=== PATIENT | female | born 1995 | race Caucasian/White ===

== ENCOUNTER 2016-08-23 02:45 | Inpatient (IN) | payer OTHER ==
[2016-08-23 03:39] VITALS: BMI 21.6
--- NOTE | 2016-08-23 04:40 | PDOC ---
History of Present Illness - General History Source: Patient Exam Limitations: No Limitations - History of Present Illness Initial Comments: 08/23/16 05:07 The patient is a 21 year old female with no significant past medical history who presents to the ED with 4 days of abdominal pain. Patient describes pain as dull and achy in quality and 7/10 that is worse with deep inspiration and bending over. States her pain starts in the mid epigastric area and subsequently radiated into the right upper quadrant and left upper quadrant. Denies any changes in her diet, nausea, vomiting, or diarrhea. Patient states she feels full quickly and increased belching. She endorses dizziness. Patient tried using tums and prune juice with no relief as well as tylenol with no relief. States for 3 days a week she partakes in dance competition. Her LMP was 1 week ago. The patient denies fever, chills, cough, SOB, chest pain, and palpitations. Allergies: NKDA Social History: No alcohol, tobacco, or drug use reported. Past Surgical History: None reported PCP: Dr. Rebecca Vila <Jess Beauchamp - Last Filed: 08/23/16 05:27> - General History Source: Patient <SchuylerFrankie teixeira - Last Filed: 08/23/16 19:46> - General Chief Complaint: Pain Stated Complaint: STOMACH PAIN Time Seen by Provider: 08/23/16 04:40 Past History <Jess Beauchamp - Last Filed: 08/23/16 05:27> - Psycho/Social/Smoking Cessation Hx Suicidal Ideation: No Smoking History: Never smoked Have you smoked in the past 12 months: No Information on smoking cessation initiated: No Hx Alcohol Use: No Drug/Substance Use Hx: No <Frankie Daniels - Last Filed: 08/23/16 19:46> - Past Medical History Allergies/Adverse Reactions: Allergies Allergy/AdvReac Type Severity Reaction Status Date / Time No Known Allergies Allergy Verified 08/23/16 03:36 Home Medications: Ambulatory Orders NK [No Known Home Medication] 08/23/16 Review of Systems - Review of Systems Able to Perform ROS?: Yes Comments:: 08/23/16 05:07 CONSTITUTIONAL: Absent: fever, no chills, no fatigue EYES: Absent: visual changes ENT: Absent: ear pain, no sore throat CARDIOVASCULAR: Absent: chest pain, no palpitations RESPIRATORY: Absent: cough, no SOB GI: +midepigastric pain, RUQ pain, LUQ pain, belching Absent: no nausea, no vomiting , no constipation, no diarrhea GENITOURINARY: Absent: dysuria, no frequency, no hematuria MUSCULOSKELETAL: Absent: back pain, no arthralgia, no myalgia SKIN: Absent: rash NEURO: +dizziness Absent: headache <NitoJess - Last Filed: 08/23/16 05:27> *Physical Exam - Vital Signs Last Vital Signs Temp Pulse Resp BP Pulse Ox 97.5 F L 74 14 119/78 100 08/23/16 03:36 08/23/16 03:36 08/23/16 03:36 08/23/16 03:36 08/23/16 03:36 - Physical Exam Comments: 08/23/16 05:07 GENERAL: Well-appearing, well-nourished. No apparent distress. HEENT: Normocephalic, atraumatic. PERRL, EOM intact. CARDIOVASCULAR: Normal S1, S2. Regular rate and rhythm. PULMONARY: Clear to auscultation bilaterally. ABDOMEN: Soft, non-distended, non-tender. EXTREMITIES: Normal ROM in all four extremities. No gross deformities. SKIN: Warm, dry. No rash NEUROLOGICAL: No focal neurological deficits. <NitoJess - Last Filed: 08/23/16 05:27> - Vital Signs Last Vital Signs Temp Pulse Resp BP Pulse Ox 97.5 F L 74 14 119/78 100 08/23/16 03:36 08/23/16 03:36 08/23/16 03:36 08/23/16 03:36 08/23/16 03:36 <Frankie Daniels - Last Filed: 08/23/16 19:46> ED Treatment Course - LABORATORY CBC & Chemistry Diagram: 08/23/16 04:57 08/23/16 04:57 - Medications Given in the ED: ED Medications Discontinued Medications Generic Name Dose Route Start Last Admin Trade Name Freq PRN Reason Stop Dose Admin Pantoprazole Sodium 40 mg 08/23/16 04:45 08/23/16 04:56 Protonix - PO 08/23/16 04:46 40 mg ONCE ONE Administration <Jess Beauchamp - Last Filed: 08/23/16 05:27> - LABORATORY CBC & Chemistry Diagram: 08/23/16 04:57 08/23/16 04:57 <Frankie Daniels - Last Filed: 08/23/16 19:46> Medical Decision Making - Medical Decision Making 08/23/16 19:46 Dr. Daniels: The scribe's documentation has been prepared under my direction and personally reviewed by me in its entirery. I confirm that the note above accurately reflects all work, treatment, procedures, and medical decision making performed by me. <Frankie Daniels - Last Filed: 08/23/16 19:46> *DC/Admit/Observation/Transfer - Attestations Scribe Attestion: 08/23/16 05:08 Documentation prepared by Jess Beauchamp, acting as medical record transcriber for Frankie Daniels MD/. <Jess Beauchamp - Last Filed: 08/23/16 05:27> <Frankie Daniels - Last Filed: 08/23/16 19:46> Diagnosis at time of Disposition: Acute pancreatitis Qualifiers: Pancreatitis type: unspecified pancreatitis type Acute pancreatitis complication: unspecified Qualified Code(s): K85.90 - Acute pancreatitis without necrosis or infection, unspecified - Discharge Dispostion Condition at time of disposition: Stable - Referrals
[2016-08-23] MEDS ORDERED: PANTOPRAZOLE 40 MG TABLET (FP) PO ONE (04:45)
[2016-08-23] MEDS ORDERED: PANTOPRAZOLE 40 MG TABLET (FP) ONE (04:47)
[2016-08-23 05:14] LABS: BASOPHIL 0.4 % (0-2.0); EOSINOPHIL 0.4 % (0-4.5); MCH 25.3 pg (25.7-33.7); MCHC 31.5 g/dl (32.0-36.0); MEAN CELL VOLUME 80.1 fl (80-96); MEAN PLT VOLUME 8.9 fl (7.5-11.1); NEUTROPHILS 52.4 % (42.8-82.8); PLATELET COUNT 154 K/MM3 (134-434); WHITE BLOOD COUNT 7.2 K/mm3 (4.0-10.0)
[2016-08-23 05:26] LABS: INR 1.05 (0.82-1.09); PROTHROMBIN TIME (PATIENT) 11.6 SEC (9.98-11.88)
[2016-08-23 05:39] LABS: ALBUMIN 3.8 g/dl (3.4-5.0); ALK PHOS 51 U/L (45-117); AMYLASE 87 U/L (25-115); ANION GAP 9 (8-16); BILIRUBIN,TOTAL 0.2 mg/dL (0.2-1.0); CALCIUM 8.7 mg/dL (8.5-10.1); CO2 26 mmol/L (21-32); COCKROFT - GAULT 114.5885; CREATININE 0.6 mg/dL (0.55-1.02); GLUCOSE,RANDOM 84 mg/dL (74-106); SGOT/AST 19 U/L (15-37); SGPT/ALT 23 U/L (12-78)
[2016-08-23 05:39] LABS: URINE APPEARANCE CLEAR; URINE BILIRUBIN NEGATIVE (NEGATIVE); URINE COLOR LTYELLOW; URINE GLUCOSE (UA) NEGATIVE (NEGATIVE); URINE KETONE NEGATIVE (NEGATIVE); URINE LEUK ESTERASE NEGATIVE (NEGATIVE); URINE NITRITE NEGATIVE (NEGATIVE); URINE PROTEIN NEGATIVE (NEGATIVE); URINE UROBILINOGEN NEGATIVE E.U./dl (0.2-1.0)
[2016-08-23 05:43] LABS: URINE BLOOD 2+ (NEGATIVE)
[2016-08-23 05:44] LABS: URINE MUCUS RARE; URINE RBC 112 /hpf (0-3); URINE WBC 2 /hpf (3-5)
[2016-08-23] MEDS ORDERED: SODIUM CHLORIDE 1,000 ML IV SCH ×2 (06:15→07:15)
--- NOTE | 2016-08-23 06:44 | PDOC ---
*Physical Exam - Vital Signs Last Vital Signs Temp Pulse Resp BP Pulse Ox 97.5 F L 74 14 119/78 100 08/23/16 03:36 08/23/16 03:36 08/23/16 03:36 08/23/16 03:36 08/23/16 03:36 - Physical Exam Comments: 08/23/16 06:44 Sign-out received from outgoing Emergency Physician Pt interviewed and examined Ancillary studies reviewed Elevated lipase noted CT pending 08/23/16 07:02 Will admit for further evaluation and treatment of pancreatitis Clinical impression: Pancreatitis Case discussed in detail with admitting provider including history, physical exam and ancillary studies. Admitting physician has assumed care for the patient, will follow all pending diagnostics and will complete the evaluation and treatment. 08/23/16 07:26 EKG noted: Normal sinus rhythm at 68, normal axis, normal intervals, inverted T- wave in lead 3, no ST changes 08/23/16 07:48 TFTs were ordered in error and immediately cancelled after the order was placed They are being run in error ED Treatment Course - LABORATORY CBC & Chemistry Diagram: 08/23/16 04:57 08/23/16 04:57 - ADDITIONAL ORDERS Additional order review: Laboratory Results 08/23/16 08/23/16 08/23/16 05:42 04:57 04:57 INR 1.05 Sodium Potassium Chloride Carbon Dioxide Anion Gap BUN Creatinine Creat Clearance w eGFR Random Glucose Calcium Magnesium 2.0 Total Bilirubin AST ALT Alkaline Phosphatase Total Protein Albumin Total Amylase Lipase 897 H Serum , Qual Negative Urine Color Ltyellow Urine Appearance Clear Urine pH 6.0 Urine Protein Negative Urine Glucose (UA) Negative Urine Ketones Negative Urine Blood 2+ H Urine Nitrite Negative Urine Bilirubin Negative Urine Urobilinogen Negative Ur Leukocyte Esterase Negative Urine RBC 112 Urine WBC 2 Ur Epithelial Cells Rare Urine Mucus Rare 08/23/16 04:57 INR Sodium 141 Potassium 4.0 Chloride 106 Carbon Dioxide 26 Anion Gap 9 BUN 19 H Creatinine 0.6 Creat Clearance w eGFR > 60 Random Glucose 84 Calcium 8.7 Magnesium Total Bilirubin 0.2 AST 19 ALT 23 Alkaline Phosphatase 51 Total Protein 7.0 Albumin 3.8 Total Amylase 87 Lipase Serum , Qual Urine Color Urine Appearance Urine pH Urine Protein Urine Glucose (UA) Urine Ketones Urine Blood Urine Nitrite Urine Bilirubin Urine Urobilinogen Ur Leukocyte Esterase Urine RBC Urine WBC Ur Epithelial Cells Urine Mucus 08/23/16 04:57 RBC 4.43 MCV 80.1 MCHC 31.5 L RDW 16.0 H MPV 8.9 Neutrophils % 52.4 Lymphocytes % 38.8 Monocytes % 8.0 Eosinophils % 0.4 Basophils % 0.4 - Medications Given in the ED: ED Medications Discontinued Medications Generic Name Dose Route Start Last Admin Trade Name Freq PRN Reason Stop Dose Admin Pantoprazole Sodium 40 mg 08/23/16 04:45 08/23/16 04:56 Protonix - PO 08/23/16 04:46 40 mg ONCE ONE Administration *DC/Admit/Observation/Transfer Diagnosis at time of Disposition: Acute pancreatitis Qualifiers: Pancreatitis type: unspecified pancreatitis type Acute pancreatitis complication: unspecified Qualified Code(s): K85.90 - Acute pancreatitis without necrosis or infection, unspecified - Discharge Dispostion Admit: Yes - Referrals Referrals: Rebecca Gambino MD [Primary Care Provider] - - Patient Instructions - Post Discharge Activity
[2016-08-23 08:11] LABS: FREE T4 1.2 ng/dl (0.76-1.46); THYROID STIMULATING HORMONE 2.01 uIU/ml (0.358-3.74)
[2016-08-23] MEDS ORDERED: ONDANSETRON 4 MG/2 ML VIAL IVPB PRN (08:13)
[2016-08-23] MEDS ORDERED: morphine CARPU-JECT 2 MG/1 ML DISP.SYRIN IVPUSH PRN (08:13)
--- NOTE | 2016-08-23 08:30 | HP ---
Addendum entered and electronically signed by Reynaldo Brown RES 08/23/16 18: 23: A/P: Evaluation for source of pancreatitis: * Abd. CT -showed fat stranding consistent with acute pancreatitis. * Gallbladder US- shows no evidence of stones * Lipid panel shows TG of 101 * will not trend lipase. Original Note: CHIEF COMPLAINT:abdominal pain PCP: HISTORY OF PRESENT ILLNESS: 21 yo F with no significant PMHx presents with four day history of abdominal pain. She describes constant achy 8/10 epigastric pain that radiates to bilateral upper quadrants. Pain is worse with eating and bending. NO alleviating factors. She tried tums, prune juice, and tylenol with no relief. Accompanied by early satiety, dizziness and increased belching. She denies fever , chills, nausea or vomiting. Never had similar issues in past. She does not drink alcohol, no history of gall stones, on no medications, and no perscription drugs. Denies CP,ARMSTRONG,SOB, palpitations, diarrhea or constipation. ER course was notable for: (1) Lipase 847 (2) Ct abdomen (3) EKG- NSR, no st changes , flipped T wave in lead III Recent Travel: denies PAST MEDICAL HISTORY: none PAST SURGICAL HISTORY: none Social History: Smoking: never Alcohol:never Drugs: denies Family History: Mother ( of Lymphoma) Allergies No Known Allergies Allergy (Verified 08/23/16 03:36) HOME MEDICATIONS: Home Medications Medication Instructions Recorded NK [No Known Home Medication] 08/23/16 REVIEW OF SYSTEMS CONSTITUTIONAL: (+)loss of appetite Absent: fever, chills, diaphoresis, generalized weakness, malaise, , weight change HEENT: Absent: rhinorrhea, nasal congestion, throat pain, throat swelling, difficulty swallowing, mouth swelling, ear pain, eye pain, visual changes CARDIOVASCULAR: Absent: chest pain, syncope, palpitations, irregular heart rate, lightheadedness , peripheral edema RESPIRATORY: Absent: cough, shortness of breath, dyspnea with exertion, orthopnea, wheezing, stridor, hemoptysis GASTROINTESTINAL:(+) mid epigastic abdominal pain Absent: , abdominal distension, nausea, vomiting, diarrhea, constipation, melena , hematochezia GENITOURINARY: Absent: dysuria, frequency, urgency, hesitancy, hematuria, flank pain, genital pain MUSCULOSKELETAL: Absent: myalgia, arthralgia, joint swelling, back pain, neck pain SKIN: Absent: rash, itching, pallor HEMATOLOGIC/IMMUNOLOGIC: Absent: easy bleeding, easy bruising, lymphadenopathy, frequent infections ENDOCRINE: Absent: unexplained weight gain, unexplained weight loss, heat intolerance, cold intolerance NEUROLOGIC: Absent: headache, focal weakness or paresthesias, dizziness, unsteady gait, seizure, mental status changes, bladder or bowel incontinence PSYCHIATRIC: Absent: anxiety, depression, suicidal or homicidal ideation, hallucinations. PHYSICAL EXAMINATION Vital Signs - 24 hr 08/23/16 03:36 Temperature 97.5 F L Pulse Rate 74 Respiratory 14 Rate Blood Pressure 119/78 O2 Sat by Pulse 100 Oximetry (%) GENERAL: AAOx3 , NAD HEAD: NC/AT. EYES: PERRLA, EOMI, sclera anicteric, conjunctiva clear. No lid lag. EARS, NOSE, THROAT: dry mucous membranes. NECK: supple , No JVD or LAD. LUNGS: CTAB No wheezes, and no crackles. No accessory muscle use. HEART: RRR, normal S1 and S2 without murmur, rub or gallop. ABDOMEN: Soft, mod epigastric tenderness, ND, BS(+), (+) voluntary guarding, no rebound, no masses. No hepatomegaly or splenomegaly. MUSCULOSKELETAL: Normal range of motion at all joints. No bony deformities or tenderness. No CVA tenderness. UPPER EXTREMITIES: 2+ pulses, warm, well-perfused. No cyanosis. No clubbing. No peripheral edema. LOWER EXTREMITIES: 2+ pulses, warm, well-perfused. No calf tenderness. No peripheral edema. NEUROLOGICAL: Cranial nerves II-XII intact. Normal speech. gait not observed. PSYCHIATRIC: Cooperative. Good eye contact. Appropriate mood and affect. SKIN: Warm, dry, normal turgor, no rashes or lesions noted, normal capillary refill. Laboratory Results - last 24 hr 08/23/16 08/23/16 08/23/16 04:57 04:57 04:57 WBC 7.2 RBC 4.43 Hgb 11.2 Hct 35.5 MCV 80.1 MCHC 31.5 L RDW 16.0 H Plt Count 154 MPV 8.9 Neutrophils % 52.4 Lymphocytes % 38.8 Monocytes % 8.0 Eosinophils % 0.4 Basophils % 0.4 INR 1.05 Sodium 141 Potassium 4.0 Chloride 106 Carbon Dioxide 26 Anion Gap 9 BUN 19 H Creatinine 0.6 Creat Clearance w eGFR > 60 Random Glucose 84 Calcium 8.7 Magnesium Total Bilirubin 0.2 AST 19 ALT 23 Alkaline Phosphatase 51 Total Protein 7.0 Albumin 3.8 Total Amylase 87 Lipase Serum , Qual Urine Color Urine Appearance Urine pH Urine Protein Urine Glucose (UA) Urine Ketones Urine Blood Urine Nitrite Urine Bilirubin Urine Urobilinogen Ur Leukocyte Esterase Urine RBC Urine WBC Ur Epithelial Cells Urine Mucus 08/23/16 08/23/16 04:57 05:42 WBC RBC Hgb Hct MCV MCHC RDW Plt Count MPV Neutrophils % Lymphocytes % Monocytes % Eosinophils % Basophils % INR Sodium Potassium Chloride Carbon Dioxide Anion Gap BUN Creatinine Creat Clearance w eGFR Random Glucose Calcium Magnesium 2.0 Total Bilirubin AST ALT Alkaline Phosphatase Total Protein Albumin Total Amylase Lipase 897 H Serum , Qual Negative Urine Color Ltyellow Urine Appearance Clear Urine pH 6.0 Urine Protein Negative Urine Glucose (UA) Negative Urine Ketones Negative Urine Blood 2+ H Urine Nitrite Negative Urine Bilirubin Negative Urine Urobilinogen Negative Ur Leukocyte Esterase Negative Urine RBC 112 Urine WBC 2 Ur Epithelial Cells Rare Urine Mucus Rare ASSESSMENT/PLAN: 21 yo F with no significant PMhx admitted for acute pancreatitis. Problem List - Problem (1) Acute pancreatitis Assessment/Plan: * CT abdomen pending * IVF with NS @ 125ml/hr * Morphine 2mg IV Q4H PRN * NPO (2) Volume depletion Assessment/Plan: * BUN 19 Cr. 0.6 ; BUN/Cr >20 - most likely do to decrease po intake. * IVF with NS @125ml/hr * repeat CMP in AM (3) DVT prophylaxis Assessment/Plan: * SCD's bilat. Visit type - Emergency Visit Emergency Visit: Yes ED Registration Date: 08/23/16 Care time: The patient presented to the Emergency Department on the above date and was hospitalized for further evaluation of their emergent condition. - New Patient This patient is new to me today: Yes Date on this admission: 08/23/16 - Critical Care Critical Care patient: No
--- NOTE | 2016-08-23 08:57 | PN ---
Teaching Attending Note Name of Resident: Reynaldo Brown ATTENDING PHYSICIAN STATEMENT I saw and evaluated the patient. I reviewed the resident's note and discussed the case with the resident. I agree with the resident's findings and plan as documented. SUBJECTIVE: CC: abd pain. HPI: 21 y/o lady with no SIg PMH who presented with abd pain. pain started in epigastric area 4 days ago. it increased in intensity gradually. she denied N/V , fever , chills, dysuria , diarrhea or constipation . she denied abd pain after fatty food. no one in family with h/o pancreatitis or gall stones . denies any ALcohol use , drug use, or smoking. OBJECTIVE: NAD , AAOx3. HEENT: MMM, no facial droop, EOMI, round equal reactive pupils , no LAP in neck CV: RRR, no MRG Lungs: CTAB ext : no edema Abd : soft, ND , TTP in epigastric area, and all quadrants . nl BS . minimal rebound tenderness in both upper quadrants, no guarding ASSESSMENT AND PLAN: 21 y/o lady with no Significant PMH who presented with abd pain and was found to have acute pancreatitis . 1- Acute pancreatitis : unclear etiology. calcium level is NL, has no LFTS abn to suggest an obstructing gall stone. no ALcohol abuse and no family hx of pancreatitis or gall stones. - CT scan of Abd pending. - will order US to r/o gall stones. if present , need surgery eval - IVF - morphine for pain - NPO , will feed tomorrow - serial abd exam. - she has signs of volume depletion given elevated BUN. cont hydration - no need to trend lipase if clinically improving
[2016-08-23] MEDS ORDERED: morphine CARPU-JECT 2 MG/1 ML DISP.SYRIN ONE (09:25)
[2016-08-23] MEDS ORDERED: ENOXAPARIN NA (PORCINE) 40 MG/0.4 ML DISP.SYRIN SQ SCH (10:00)
[2016-08-23] MEDS ORDERED: ENOXAPARIN NA (PORCINE) 40 MG/0.4 ML DISP.SYRIN SQ ONE (10:51)
--- NOTE | 2016-08-23 11:32 | EKG ---
Test Reason : Blood Pressure : / mmHG Vent. Rate : 068 BPM Atrial Rate : 068 BPM P-R Int : 144 ms QRS Dur : 072 ms QT Int : 388 ms P-R-T Axes : -04 047 006 degrees QTc Int : 412 ms NORMAL SINUS RHYTHM WITH SINUS ARRHYTHMIA NORMAL ECG NO PREVIOUS ECGS AVAILABLE Confirmed by JOSE RODRIGUEZ MD ([id number]) on 08/23/2016 11:32:06 AM Referred By: Confirmed By:JOSE RODRIGUEZ MD
[2016-08-23] MEDS: SODIUM CHLORIDE 1,000 ML IV SCH (18:52)
[2016-08-24] MEDS: SODIUM CHLORIDE 1,000 ML IV SCH ×2 (06:05→10:02)
[2016-08-24 08:24] LABS: BASOPHIL 0.4 % (0-2.0); EOSINOPHIL 0.1 % (0-4.5); MCH 25.7 pg (25.7-33.7); MCHC 31.9 g/dl (32.0-36.0); MEAN CELL VOLUME 80.6 fl (80-96); MEAN PLT VOLUME 9.2 fl (7.5-11.1); NEUTROPHILS 74.6 % (42.8-82.8); PLATELET COUNT 139 K/MM3 (134-434); RDW 15.3 % (11.6-15.6); WHITE BLOOD COUNT 5.7 K/mm3 (4.0-10.0)
[2016-08-24 09:01] LABS: ALBUMIN 3.6 g/dl (3.4-5.0); ANION GAP 16 (8-16); CALCIUM 8.4 mg/dL (8.5-10.1); CO2 20 mmol/L (21-32); MAGNESIUM 1.8 mg/dL (1.8-2.4)
[2016-08-24 09:06] LABS: ALK PHOS 59 U/L (45-117); BILIRUBIN,TOTAL 0.8 mg/dL (0.2-1.0); CREATININE 0.5 mg/dL (0.55-1.02); GLUCOSE,RANDOM 50 mg/dL (74-106); SGOT/AST 21 U/L (15-37); SGPT/ALT 19 U/L (12-78); TOT PROT 6.4 g/dl (6.4-8.2)
[2016-08-24] MEDS ORDERED: SODIUM CHLORIDE 1,000 ML IV SCH (12:37)
--- NOTE | 2016-08-24 18:34 | PN ---
Physical Exam: SUBJECTIVE: Patient seen and examined OBJECTIVE: Vital Signs Period Temp Pulse Resp BP Sys/Martinez Pulse Ox Last 24 Hr 98.1 F-98.4 F 72-89 18-18 95-122/54-65 98-100 GENERAL: The patient is awake, alert, and fully oriented, in no acute distress. HEAD: Normal with no signs of trauma. EYES: PERRL, extraocular movements intact, sclera anicteric, conjunctiva clear. No ptosis. ENT: Ears normal, nares patent, oropharynx clear without exudates, moist mucous membranes. NECK: Trachea midline, full range of motion, supple. LUNGS: Breath sounds equal, clear to auscultation bilaterally, no wheezes, no crackles, no accessory muscle use. HEART: Regular rate and rhythm, S1, S2 without murmur, rub or gallop. ABDOMEN: Soft, nontender, nondistended, normoactive bowel sounds, no guarding, no rebound, no hepatosplenomegaly, no masses. EXTREMITIES: 2+ pulses, warm, well-perfused, no edema. NEUROLOGICAL: Cranial nerves II through XII grossly intact. Normal speech, gait not observed. PSYCH: Normal mood, normal affect. SKIN: Warm, dry, normal turgor, no rashes or lesions noted Laboratory Results - last 24 hr 08/24/16 08/24/16 07:40 07:40 WBC 5.7 RBC 4.63 Hgb 11.9 Hct 37.3 MCV 80.6 MCHC 31.9 L RDW 15.3 Plt Count 139 MPV 9.2 Neutrophils % 74.6 D Lymphocytes % 20.1 D Monocytes % 4.8 Eosinophils % 0.1 Basophils % 0.4 Sodium 141 Potassium 3.6 Chloride 105 Carbon Dioxide 20 L D Anion Gap 16 BUN 15 D Creatinine 0.5 L Creat Clearance w eGFR > 60 Random Glucose 50 L D Calcium 8.4 L Phosphorus 3.0 Magnesium 1.8 Total Bilirubin 0.8 D AST 21 ALT 19 Alkaline Phosphatase 59 Total Protein 6.4 Albumin 3.6 Active Medications Generic Name Dose Route Start Last Admin Trade Name Freq PRN Reason Stop Dose Admin Sodium Chloride 1,000 mls @ 75 mls/hr 08/24/16 12:37 08/24/16 15:57 Normal Saline - IV 75 mls/hr ASDIR REJI Administration Ondansetron HCl 4 mg 08/23/16 08:13 Zofran Injection IVPB Q6H PRN NAUSEA ASSESSMENT/PLAN: Problem List - Problems (1) Acute pancreatitis Assessment/Plan: * Tolerating regular diet; plan for discharge in AM * CT abdomen shows fat stranding * TG-101 * Gallbladder US negative * IVF with NS @ 125ml/hr * Morphine 2mg IV Q4H PRN (2) Volume depletion Assessment/Plan: * BUN 19 Cr. 0.6 ; BUN/Cr >20 - most likely do to decrease po intake. * IVF with NS @125ml/hr * repeat CMP in AM (3) DVT prophylaxis Assessment/Plan: * SCD's bilat. Visit type - Emergency Visit Emergency Visit: Yes ED Registration Date: 08/23/16 Care time: The patient presented to the Emergency Department on the above date and was hospitalized for further evaluation of their emergent condition. - New Patient This patient is new to me today: No - Critical Care Critical Care patient: No - Discharge Referral Referred to [facility] Med P.C[facility] No
--- NOTE | 2016-08-24 18:38 | PN ---
Teaching Attending Note Name of Resident: Reynaldo Brown ATTENDING PHYSICIAN STATEMENT I saw and evaluated the patient. I reviewed the resident's note and discussed the case with the resident. I agree with the resident's findings and plan as documented. SUBJECTIVE: no fever or chills. feels better , tolerated diet OBJECTIVE: NAD , AAOx3. CV: RRR, no MRG Lungs: CTAB ext : no edema Abd : soft, ND , minimal TTP in epigastric area, no rebound tenderness or guarding ASSESSMENT AND PLAN: 21 y/o lady with no Significant PMH who presented with abd pain and was found to have acute pancreatitis . 1- Acute pancreatitis : unclear etiology. calcium level is NL, has no LFTS abn to suggest an obstructing gall stone. no ALcohol abuse and no family hx of pancreatitis or gall stones. no US evidence of gall stones . TG not elevated - tolerated advanced diet dc home f/u with GI as out pt f/u with PCP
--- NOTE | 2016-08-24 18:55 | DS ---
Physical Exam: SUBJECTIVE: Patient seen and examined at bedside. No overnight events. No new complaints. Abd. pain has resolved. torerating regular diet. Denies CP,ARMSTRONG, SOB, Abd. pain, N/V. OBJECTIVE: Vital Signs Period Temp Pulse Resp BP Sys/Martinez Pulse Ox Last 24 Hr 98.1 F-98.4 F 72-89 18-18 95-122/54-65 98-100 PHYSICAL EXAM NAD , AAOx3. CV: RRR, no MRG Lungs: CTAB ext : no edema Abd : soft, ND , minimal TTP in epigastric area, no rebound tenderness or guarding LABS Laboratory Results - last 24 hr 08/24/16 08/24/16 07:40 07:40 WBC 5.7 RBC 4.63 Hgb 11.9 Hct 37.3 MCV 80.6 MCHC 31.9 L RDW 15.3 Plt Count 139 MPV 9.2 Neutrophils % 74.6 D Lymphocytes % 20.1 D Monocytes % 4.8 Eosinophils % 0.1 Basophils % 0.4 Sodium 141 Potassium 3.6 Chloride 105 Carbon Dioxide 20 L D Anion Gap 16 BUN 15 D Creatinine 0.5 L Creat Clearance w eGFR > 60 Random Glucose 50 L D Calcium 8.4 L Phosphorus 3.0 Magnesium 1.8 Total Bilirubin 0.8 D AST 21 ALT 19 Alkaline Phosphatase 59 Total Protein 6.4 Albumin 3.6 IMAGING: * EXAM#: TYPE/EXAM: RESULT: [id number] US/ABDOMEN US -LIMITED Rule out stones Right upper abdomen ultrasound. The liver is within normal limits in size and echotexture. Gallbladder is adequately distended without intraluminal stones or thickening of its wall. No intra or extrahepatic bile duct dilatation is seen. The right kidney measures 10.5 cm sagittal length and appears unremarkable. Visualized portion of the pancreas appears unremarkable Visualized portion of the proximal abdominal aorta and inferior vena cava appear unremarkable. IMPRESSION: Unremarkable examination . Reported By: Harjit Escoto MD 08/23/16 1019 HOSPITAL COURSE: 21 y/o lady with no Significant PMH who presented with abd pain and was found to have acute pancreatitis . Ct confirmed acute pancreatitis. Lipase was elevated. Patient was placed NPO, given NS IVF, and pain control with morphine PRN.Unclear etiology for pancreatitis. Lipid panel showed TG 101, no history of ETOH or history of pancreatitis, gallbladder US was negative for stones. Will make referral to see GI as outpatient for further follow up. Patient abdominal pain improved significantly and was stable for discharge. Date of Admission:08/23/16 Date of Discharge: 08/24/16 Minutes to complete discharge: 33 Discharge Summary Reason For Visit: ACUTE PANCREATITIS Current Active Problems Acute pancreatitis (Acute) DVT prophylaxis (Acute) Volume depletion (Acute) Condition: Stable - Instructions Diet, Activity, Other Instructions: Please follow with Dr. Ward from GI , to evaluate further why you had pancreatitis. Try to avoid fatty foods for next few days then you can resume regular diet. Increase activity as tolerated. Referrals: Vipin Ward MD [Staff Physician] - Rebecca Gambino MD [Primary Care Provider] - Disposition: HOME - Home Medications Comprehensive Discharge Medication List: Ambulatory Orders NK [No Known Home Medication] 08/23/16 Problem List - Problems (1) Acute pancreatitis (2) Volume depletion (3) DVT prophylaxis This patient is new to me today: No Emergency Visit: Yes ED Registration Date: 08/23/16 Care time: The patient presented to the Emergency Department on the above date and was hospitalized for further evaluation of their emergent condition. Critical Care patient: No - Discharge Referral Referred to [id number] Med [facility].C[facility] No
[2016-08-24 19:52] VITALS: BP 114/71; PULSE 75; TEMP 98.8
== END 2016-08-24 19:44 | disposition home or self-care (01) | DRG 282 ==
LOC: JER 02:45 → JERBED 13:35 → J6S 15:35
PROVIDERS: ADMIT Internal Medicine; ATTEND Internal Medicine
DX: K85.90 Acute pancreatitis without necrosis or infection, unspecified (principal); E86.9 Volume depletion, unspecified
CPT/HCPCS: 36415; 74177-TC; 76705-TC; 80053; 80061; 81003; 81015; 82150; 83690; 83721; 83735; 84100; 84439; 84443; 84703; 85025; 85610; 93005; 93010; 99285-25; Q9967

== ENCOUNTER 2016-09-01 15:20 | Emergency (ER) | payer OTHER ==
[2016-09-01 15:24] VITALS: BP 119/71; PULSE 90; TEMP 98; BMI 21.6
[2016-09-01] MEDS ORDERED: IBUPROFEN 100 MG/5 ML UNIT DOSE CUPS PO ONE (15:49)
[2016-09-01] MEDS ORDERED: IBUPROFEN 100 MG/5 ML UNIT DOSE CUPS ONE (15:51)
--- NOTE | 2016-09-01 15:56 | PDOC ---
History of Present Illness - General Chief Complaint: Injury Stated Complaint: LACERATION Time Seen by Provider: 09/01/16 15:30 History Source: Patient - History of Present Illness Occurred: reports: just prior to arrival Upper Extremity Pain Location: left: thumb Method of Injury: reports: direct blow Past History - Past Medical History Allergies/Adverse Reactions: Allergies Allergy/AdvReac Type Severity Reaction Status Date / Time No Known Allergies Allergy Verified 09/01/16 15:24 Home Medications: Ambulatory Orders NK [No Known Home Medication] 08/23/16 Anemia: No Asthma: No Cancer: No Cardiac Disorders: No CVA: No COPD: No CHF: No Dementia: No Diabetes: No GI Disorders: No Disorders: No HTN: No Hypercholesterolemia: No Liver Disease: No Seizures: No Thyroid Disease: No - Surgical History Abdominal Surgery: No Appendectomy: No Cardiac Surgery: No Cholecystectomy: No Lung Surgery: No Neurologic Surgery: No Orthopedic Surgery: No - Psycho/Social/Smoking Cessation Hx Suicidal Ideation: No Smoking History: Never smoked Have you smoked in the past 12 months: No Information on smoking cessation initiated: No Hx Alcohol Use: No Drug/Substance Use Hx: No Review of Systems - Review of Systems Musculoskeletal: Yes: Joint Pain *Physical Exam - Vital Signs Last Vital Signs Temp Pulse Resp BP Pulse Ox 98 F 90 18 119/71 100 09/01/16 15:22 09/01/16 15:22 09/01/16 15:22 09/01/16 15:22 09/01/16 15:22 - Physical Exam General Appearance: Yes: Appropriately Dressed. No: Apparent Distress HEENT: positive: Normal Voice Neck: positive: Supple Respiratory/Chest: negative: Respiratory Distress Extremity: positive: Other (+subungal hematoma to L thumb, no sig swelling and no deformity) Integumentary: positive: Dry, Warm Neurologic: positive: Fully Oriented, Alert, Normal Mood/Affect Procedures - Nail Trephination Method of Drainage: nail cauterized Sterile Dressing Applied: Yes Finger Splint: Yes ED Treatment Course - RADIOLOGY Radiology Studies Ordered: Category Date Time Status FINGER(S) LEFT [RAD] Stat Radiology 09/01/16 15:49 Ordered Medical Decision Making - Medical Decision Making 09/01/16 15:51 21 yo F, no sig hx, here w/ finger injury after she accidentally slammed finger in car door See exam Finger injury w/ subungal hematoma R/o fx -XR -pain control -tetanus UTD -nail trephination 09/01/16 16:30 XR neg for fx. Dressing and splint placed. Pt discharged in stable condition *DC/Admit/Observation/Transfer Diagnosis at time of Disposition: Subungual hematoma of finger Qualifiers: Encounter type: initial encounter Qualified Code(s): S60.10XA - Contusion of unspecified finger with damage to nail, initial encounter - Discharge Dispostion Disposition: HOME Condition at time of disposition: Good - Referrals Referrals: Rebecca Gambino MD [Primary Care Provider] - - Patient Instructions Printed Discharge Instructions: Finger Sprain, DI for Subungual Hematoma Additional Instructions: Your xray was negative for fracture. Keep splint dressing in place for comfort and take motrin for pain
== END 2016-09-01 16:31 | disposition home or self-care (01) ==
LOC: JERFT 15:20
PROC: 0H9QXZZ Drainage of Finger Nail, External Approach (ICD-10-PCS; principal; 2016-09-01)
PROC: 2W3KX1Z Immobilization of Left Finger using Splint (ICD-10-PCS; 2016-09-01)
DX: S60.112A Contusion of left thumb with damage to nail, initial encounter (principal); V48.4XXA Person boarding or alighting a car injured in noncollision transport accident, initial encounter; Y92.488 Other paved roadways as the place of occurrence of the external cause; Y93.89 Activity, other specified
CPT/HCPCS: 11740-25; 29130; 73140-TC-LT; 99281-25